=== PATIENT | male | born 1950 | race Caucasian/White ===

== ENCOUNTER → 2018-07-24 | Outpatient (CLI) | payer MEDICARE | END | disposition home or self-care (01) | LOC: RAD 09:26 | PROVIDERS: ATTEND Genetic Counselor, MS | DX: R13.10 Dysphagia, unspecified (principal) | CPT/HCPCS: 74230; 92611; G8996; G8997; G8998 ==

== ENCOUNTER → 2018-10-16 | Outpatient (CLI) | payer MEDICARE | END | disposition home or self-care (01) | LOC: RAD 08:19 | PROVIDERS: ATTEND Genetic Counselor, MS | DX: J34.1 Cyst and mucocele of nose and nasal sinus (principal); R41.3 Other amnesia | CPT/HCPCS: 70544; 70551 ==

== ENCOUNTER → 2019-03-28 | Outpatient (CLI) | payer MEDICARE ==
[~2019-03-28] MED LIST: ATOR20TA37 PO; BENA10TA4 PO; DOXA1TAB2 PO; LEVO50TA5 PO
[2019-03-28 10:40] LABS: ALBUMIN 3.8 g/dL (3.4-5.0); ANION GAP 5 mmol/L (5-15); CALCIUM 8.9 mg/dL (8.5-10.1); CHLORIDE 112 mmol/L (98-107)
[2019-03-28 10:44] LABS: ALANINE AMINOTRANSFERASE 25 U/L (12-78); ALKALINE PHOSPHATASE 94 U/L (45-117); BILIRUBIN,TOTAL 0.8 mg/dL (0.2-1.0); CREATININE 1.18 mg/dL (0.7-1.3); TOTAL PROTEIN 7.2 g/dL (6.4-8.2)
== END | disposition home or self-care (01) ==
LOC: STAR 09:14
PROVIDERS: ATTEND Orthopaedic Surgery
DX: Z01.818 Encounter for other preprocedural examination (principal); M76.51 Patellar tendinitis, right knee; M25.861 Other specified joint disorders, right knee
CPT/HCPCS: 36415; 80053; 93005

== ENCOUNTER 2019-04-05 09:12 | Day surgery (SDC) | payer MEDICARE ==
[~2019-04-05] VITALS: Ht 185.4 cm; Wt 94.1 kg
[~2019-04-05 09:12] MED LIST changes: +BUPIVACAINE/EPI 0.5% 1:200K ONE
[2019-04-05] MEDS ORDERED: LACTATED RINGERS 1,000 ML IV SCH (09:29)
[2019-04-05 09:55] VITALS: BP 156/93
[2019-04-05] MEDS ORDERED: KETOROLAC 30 MG/1 ML IV PRN (10:00)
[2019-04-05] MEDS ORDERED: METOCLOPRAMIDE 5 MG/ML, 2ML IV PRN (10:00)
[2019-04-05] MEDS ORDERED: LABETALOL 5MG/ML, 20ML IV PRN (10:00)
[2019-04-05] MEDS ORDERED: ONDANSETRON 2MG/ML, 2ML IVPush PRN (10:00)
[2019-04-05] MEDS ORDERED: HYDROcodone/APAP 7.5-325MG/15ML UDC PO PRN (10:00)
[2019-04-05] MEDS ORDERED: MIDAZOLAM 1 MG/ML, 2ML IV PRN (10:00)
[2019-04-05] MEDS ORDERED: OXYcodone 5 MG/5 ML ORAL.SOL UDC PO PRN (10:00)
[2019-04-05] MEDS ORDERED: HYDROmorphone 1 MG/ML, 1ML INJ IV PRN (10:00)
[2019-04-05] MEDS ORDERED: FENTANYL PF 100 MCG/2ML IV PRN (10:00)
[2019-04-05] MEDS ORDERED: MEPERIDINE/PF 25MG/0.5ML IVPush PRN (10:00)
[2019-04-05] MEDS ORDERED: PROPOFOL 10 MG/ML, 20ML ONE (10:31)
[2019-04-05] MEDS ORDERED: DEXAMETHASONE 4 MG/ML, 1ML ONE (10:31)
[2019-04-05] MEDS ORDERED: GLYCOPYRROLATE 0.2MG/1ML, 5ML ONE (10:31)
[2019-04-05] MEDS ORDERED: ROCURONIUM 10MG/ML,5ML ONE (10:31)
[2019-04-05] MEDS ORDERED: MIDAZOLAM 1 MG/ML, 2ML ONE (10:32)
[2019-04-05] MEDS ORDERED: FENTANYL PF 250 MCG/5ML ONE (10:32)
[2019-04-05] MEDS ORDERED: CEFAZOLIN 1,000 MG ONE (11:09)
[2019-04-05] MEDS ORDERED: ONDANSETRON 2MG/ML, 2ML ONE (11:37)
[2019-04-05] MEDS ORDERED: LABETALOL 5 MG/ML SYRINGE IV PRN (12:30)
== END 2019-04-05 13:45 | disposition home or self-care (01) ==
LOC: OUT 09:12
PROVIDERS: ATTEND Orthopaedic Surgery
DX: M65.861 Other synovitis and tenosynovitis, right lower leg (principal); M79.89 Other specified soft tissue disorders; M17.11 Unilateral primary osteoarthritis, right knee; M25.861 Other specified joint disorders, right knee; I10 Essential (primary) hypertension; Z96.651 Presence of right artificial knee joint; E03.9 Hypothyroidism, unspecified; Z72.89 Other problems related to lifestyle
CPT/HCPCS: 27327; 88305; J0690; J1100; J2250; J2405; J2704; J3010; J7120